=== PATIENT | male | born 1980 | race African-American/Black ===

== ENCOUNTER 2021-06-12 17:57 | Emergency (ER) | payer OTHER ==
[~2021-06-12] VITALS: Ht 165.1 cm; Wt 45.4 kg
[2021-06-12 19:17] VITALS: BP 139/63
--- NOTE | 2021-06-12 21:33 | NUR ---
CALLED FOR DISCHAGE, NO ANSWER.
--- NOTE | 2021-06-12 21:33 | NUR ---
CALLED NUMBER ON FILE, PERSON STATED IT WAS A WRONG NUMBER.
[2021-06-12 21:35] VITALS: BP 139/63
--- NOTE | 2021-06-12 21:35 | NUR ---
Patient discharged with v/s stable. Written and verbal after care instructions given and explained. Patient verbalized understanding. Ambulatory with steady gait. All questions addressed prior to discharge. Advised to follow up with PMD. PT LEFT WITHOUT PAPERWORK.
== END 2021-06-12 21:35 | disposition home or self-care (01) ==
LOC: MED 17:57
DX: R06.00 Dyspnea, unspecified (principal); J45.909 Unspecified asthma, uncomplicated
CPT/HCPCS: 99281